=== PATIENT | male | born 1955 | race Caucasian/White ===

== ENCOUNTER 2023-02-17 08:37 | Emergency (ER) | payer OTHER, MEDICARE | END 2023-02-17 11:07 | disposition home or self-care (01) | LOC: ERS 08:37 | DX: S16.1XXA Strain of muscle, fascia and tendon at neck level, initial encounter (principal); S20.219A Contusion of unspecified front wall of thorax, initial encounter; I10 Essential (primary) hypertension; E11.9 Type 2 diabetes mellitus without complications; V43.52XA Car driver injured in collision with other type car in traffic accident, initial encounter; W22.11XA Striking against or struck by driver side automobile airbag, initial encounter | CPT/HCPCS: 70450; 71045; 72125 ==